=== PATIENT | male | born 1980 | race African-American/Black ===

== ENCOUNTER 2019-09-05 02:19 | Emergency (ER) | payer MEDICAID ==
[~2019-09-05] VITALS: Ht 185.4 cm; Wt 88.5 kg
[2019-09-05 02:40] VITALS: BP 132/77
--- NOTE | 2019-09-05 02:40 | NUR ---
ED Nurse Note: Pt ambulated into ED [place] spider bite on L buttock x 6 days which has worsened. pt reports drainage of pus, blood, and increased warmth to area with redness. 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 pt is reporting fevers and chills x 2 days. VSS, pt restless and irritable, aao x4, steady gait. Awaiting ERMD at bedside
--- NOTE | 2019-09-05 02:45 | NUR ---
ED Nurse Note: ERMD at bedside
--- NOTE | 2019-09-05 02:50 | NUR ---
ED Nurse Note: IV line started, blood drawn and sent to lab.
[2019-09-05] MEDS ORDERED: Vancomycin 1.5 GM in NS 275 ML IVPB ONE (03:00)
[2019-09-05] MEDS ORDERED: Morphine Sulfate 4mg/ml Inj (IV USE ONLY) IVP ONE (03:00)
[2019-09-05] MEDS ORDERED: Lidocaine 1% 10mg/ml/EPI 0.01mg/ml 30ml INJ ONE (03:00)
[2019-09-05] MEDS ORDERED: Piperacillin/Tazobactam 3.375 GM in NS 110 ML IVPB ONE (03:00)
--- NOTE | 2019-09-05 03:00 | NUR ---
ED Nurse Note: ERMD at bedside informing pt of procedure; consent signed and approved by pt.
--- NOTE | 2019-09-05 03:19 | Emergency Room Report ---
History of Present Illness General Chief Complaint: Animal Bite Source: Patient Present Illness HPI Patient is a 39-year-old male presents after increased left-sided buttock pain. He reports having gradual onset of worsening pain as well as subjective fever. He states that he had symptoms since approximately 6 days ago. This had gradually worsened over time and had started spontaneously draining yesterday. He denies any vomiting. He reports having one prior abscess many years ago. Denies any prior history of diabetes or immunocompromise. Allergies: Coded Allergies: No Known Allergies (Unverified , 09/05/19) Patient History Past Medical History: see triage record Reviewed Nursing Documentation: PMH: Agreed; PSxH: Agreed Nursing Documentation-PMH Past Medical History: No Stated History Review of Systems All Other Systems: negative except mentioned in HPI Physical Exam Vital Signs Date Time Temp Pulse Resp B/P (MAP) Pulse Ox O2 Delivery O2 Flow Rate FiO2 09/05/19 02:27 98.2 93 18 132/77 (95) 96 Room Air Sp02 EP Interpretation: reviewed, normal General Appearance: normal inspection, well appearing, no apparent distress, alert, GCS 15 Head: atraumatic ENT: normal ENT inspection, hearing grossly normal, normal voice Neck: normal inspection, full range of motion, supple, no bony tend Respiratory: normal inspection, lungs clear, normal breath sounds, no respiratory distress, no retraction, no wheezing Cardiovascular #1: regular rate, rhythm, no edema Gastrointestinal: normal inspection, normal bowel sounds, non tender, soft, no guarding, no hernia Genitourinary: no CVA tenderness Musculoskeletal: normal inspection, back normal, normal range of motion Neurologic: alert, responsive, speech normal, normal inspection Psychiatric: normal inspection, judgement/insight normal, mood/affect normal Skin: other - Present for skin rash. Differenti Procedures Incision and Drainage Incision and Drainage : Consent: Emergent Blade Size: 11 I & D Procedure: betadine prep, sterile drapes applied Wound Location: other - buttock Wound Length (cm): 3 Wound Explored: clean Irrigated w/ Saline (ccs): 10 Anesthesia: Lidocaine w/ Epi Volume Anesthetic (ccs): 8 Patient Tolerated: Well Complications: None Progress Drain moderate amount of purulent material. Area was packed with gauze. Patient tolerated procedure well. Medical Decision Making Diagnostic Impression: Primary Impression: Abscess of skin ER Course Patient presented for left buttock pain and swelling. Differential diagnosis include was not limited to abscess, furuncle, among others. Because of complexity of patient's case laboratory tests and imaging studies were ordered. Patient was noted to have some spontaneous drainage from the area. Appears to be significant abscess to the left buttock. Labs Test 09/05/19 02:53 White Blood Count 17.6 K/UL (4.8-10.8) Red Blood Count 4.53 M/UL (4.70-6.10) Hemoglobin 12.3 G/DL (14.2-18.0) Hematocrit 36.5 % (42.0-52.0) Mean Corpuscular Volume 81 FL (80-99) Mean Corpuscular Hemoglobin 27.1 PG (27.0-31.0) Mean Corpuscular Hemoglobin Concent 33.7 G/DL (32.0-36.0) Red Cell Distribution Width 11.3 % (11.6-14.8) Platelet Count 223 K/UL (150-450) Mean Platelet Volume 6.9 FL (6.5-10.1) Neutrophils (%) (Auto) 69.3 % (45.0-75.0) Lymphocytes (%) (Auto) 16.5 % (20.0-45.0) Monocytes (%) (Auto) 11.7 % (1.0-10.0) Eosinophils (%) (Auto) 1.6 % (0.0-3.0) Basophils (%) (Auto) 0.9 % (0.0-2.0) Sodium Level 139 MMOL/L (136-145) Potassium Level 3.5 MMOL/L (3.5-5.1) Chloride Level 100 MMOL/L (98-107) Carbon Dioxide Level 29 MMOL/L (21-32) Anion Gap 11 mmol/L (5-15) Blood Urea Nitrogen 11 mg/dL (7-18) Creatinine 1.4 MG/DL (0.55-1.30) Estimat Glomerular Filtration Rate > 60 mL/min (>60) Glucose Level 104 MG/DL (74-106) Lactic Acid Level 0.50 mmol/L (0.4-2.0) Calcium Level 9.0 MG/DL (8.5-10.1) Total Bilirubin 0.3 MG/DL (0.2-1.0) Aspartate Amino Transf (AST/SGOT) 19 U/L (15-37) Alanine Aminotransferase (ALT/SGPT) 38 U/L (12-78) Alkaline Phosphatase 78 U/L (46-116) Total Creatine Kinase 87 U/L (26-308) Creatine Kinase MB 0.7 NG/ML (0.0-3.6) Creatine Kinase MB Relative Index 0.8 Troponin I 0.000 ng/mL (0.000-0.056) Total Protein 7.3 G/DL (6.4-8.2) Albumin 3.3 G/DL (3.4-5.0) Globulin 4.0 g/dL Albumin/Globulin Ratio 0.8 (1.0-2.7) Last Vital Signs Date Time Temp Pulse Resp B/P (MAP) Pulse Ox O2 Delivery O2 Flow Rate FiO2 09/05/19 02:27 98.2 93 18 132/77 (95) 96 Room Air Status: improved Disposition: HOME, SELF-CARE Condition: Stable Scripts Oxycodone/Acetaminophen 5-325* (PERCOCET 5-325 MG TABLET*) 1 Each Tablet 1 TAB ORAL Q6H PRN for For Pain, #12 TAB Prov: Jaxon Nicole MD 09/05/19 Trimethoprim/Sulfamethoxazole 160/800* (BACTRIM DS TABLET*) 1 Each Tablet 1 TAB ORAL Q12H, #14 TAB 0 Refills Prov: Jaxon Nicole MD 09/05/19 Cephalexin* (KEFLEX*) 500 Mg Capsule 500 MG ORAL EVERY 6 HOURS, #28 CAP Prov: Jaoxn Nicole MD 09/05/19 Referrals: NON PHYSICIAN (PCP) Jaxon Nicole MD Sep 05, 2019 03:19
--- NOTE | 2019-09-05 03:30 | NUR ---
ED Nurse Note: All lab work sent to lab; all medications administered, pt tolerated well no s/s of distress noted.
[2019-09-05 03:40] LABS: BASOPHILS % (AUTO) 0.9 % (0.0-2.0); EOSINOPHILS % (AUTO) 1.6 % (0.0-3.0); HEMATOCRIT 36.5 % (42.0-52.0); HEMOGLOBIN 12.3 G/DL (14.2-18.0); LYMPHOCYTES % (AUTO) 16.5 % (20.0-45.0); MEAN CORPUSCULAR VOLUME 81 FL (80-99); MONOCYTES % (AUTO) 11.7 % (1.0-10.0); NEUTROPHILS % (AUTO) 69.3 % (45.0-75.0); PLATELET COUNT 223 K/UL (150-450); RED BLOOD COUNT 4.53 M/UL (4.70-6.10); RED CELL DISTRIBUTION WIDTH 11.3 % (11.6-14.8); WHITE BLOOD COUNT 17.6 K/UL (4.8-10.8)
--- NOTE | 2019-09-05 03:45 | NUR ---
ED Nurse Note: ERMD performed procedure of incision on abcess; pt tolerated well.
[2019-09-05 03:49] LABS: ANION GAP 11 mmol/L (5-15); BLOOD UREA NITROGEN 11 mg/dL (7-18); CARBON DIOXIDE 29 MMOL/L (21-32); CHLORIDE 100 MMOL/L (98-107); CREATININE 1.4 MG/DL (0.55-1.30); POTASSIUM 3.5 MMOL/L (3.5-5.1); SODIUM 139 MMOL/L (136-145)
[2019-09-05 04:02] LABS: ALANINE AMINOTRANSFERASE 38 U/L (12-78); ALBUMIN 3.3 G/DL (3.4-5.0); ALBUMIN/GLOBULIN RATIO 0.8 (1.0-2.7); ALKALINE PHOSPHATASE 78 U/L (46-116); ASPARTATE AMINO TRANSFERASE 19 U/L (15-37); BILIRUBIN,TOTAL 0.3 MG/DL (0.2-1.0); CKMB 0.7 NG/ML (0.0-3.6); CREATINE KINASE 87 U/L (26-308)
[2019-09-05 04:45] VITALS: BP 145/82
[2019-09-05] MEDS ORDERED: CEPHALEXIN500 MG ORAL (04:53)
[2019-09-05] MEDS ORDERED: BACTRIM DS TAB1 EAC1 ORAL (04:53)
[2019-09-05] MEDS ORDERED: PERCOCET 5-3251 EACH ORAL (04:53)
--- NOTE | 2019-09-05 05:00 | NUR ---
ED Nurse Note: All medications administered, pt tolerated well no ss of distress noted. no adverse reactions noted. Pt resting in bed with girlfriend at bedside
[2019-09-05 06:35] VITALS: BP 122/75
--- NOTE | 2019-09-05 07:10 | NUR ---
ED Nurse Note: Pt aware discharhe paperwork ready adn prescription for Percocet. Pt says pain came up to an 8/10 and can't wait to fill prescription. Dr Mcgregor notified.
--- NOTE | 2019-09-05 07:29 | NUR ---
ER DISCHARGE NOTE: Patient is cleared to be discharged per ERMD, pt is aox4, on room air, with stable vital signs. pt was given dc and prescription instructions, pt was able to verbalize understanding, pt id band and iv site removed without complications. pt is able to ambulate with steady gait. pt took all belongings. Pt provided education on wound care and medications.
[2019-09-05 07:30] VITALS: BP 125/78
[2019-09-05] MEDS ORDERED: HYDROcodone/Acetamin 7.5/325 tab ORAL ONE (07:30)
== END 2019-09-05 07:30 | disposition home or self-care (01) ==
LOC: EMR 03:03
DX: L02.31 Cutaneous abscess of buttock (principal)
CPT/HCPCS: 10060; 36415; 80053; 82550; 82553; 83605; 84484; 85025; 87040; 96361; 96365; 96367; 96375; J2270; J2543; J3370; J7030; J7050; Z7502; 99284

== ENCOUNTER 2019-09-07 23:24 | Emergency (ER) | payer MEDICAID ==
[~2019-09-07] VITALS: Ht 185.4 cm; Wt 87.5 kg
[~2019-09-07 23:24] MED LIST: BACTRIM DS TAB1 EAC1 ORAL; CEPHALEXIN500 MG ORAL; PERCOCET 5-3251 EACH ORAL
[2019-09-08 00:10] VITALS: BP 125/83
--- NOTE | 2019-09-08 00:10 | NUR ---
ED Nurse Note: Pt walked into ED for c/o wound recheck s/p recent I&D at [facility]. Pt had spider bite on L buttcheek that was drained. Pt has no other complaints at this time. Pt is aaox4, ambulatory with steady gait. No acute distress noted.
[2019-09-08] MEDS ORDERED: MUPIROCIN22 GM TOPIC (01:03)
--- NOTE | 2019-09-08 01:04 | Emergency Room Report ---
History of Present Illness General Chief Complaint: Wound Recheck/Suture Removal Source: Patient Present Illness HPI Is a 39-year-old male who is here for an I&D of the left buttock abscess. He is here for wound check. He said he continues to drain. Some tenderness to that area. Worse when he sit on it. Feeling better however. No fever chills. No nausea no vomiting. Pain improved. Allergies: Coded Allergies: No Known Allergies (Unverified , 09/05/19) Patient History Past Medical History: see triage record, old chart reviewed Past Surgical History: none Pertinent Family History: none Social History: Denies: smoking Immunizations: other Reviewed Nursing Documentation: PMH: Agreed; PSxH: Agreed Nursing Documentation-PMH Past Medical History: No Stated History Review of Systems Eye: Denies: eye pain, blurred vision ENT: Denies: ear pain, nose congestion, throat swelling Respiratory: Denies: cough, shortness of breath Cardiovascular: Denies: chest pain, palpitations Gastrointestinal: Denies: abdominal pain, diarrhea, nausea, vomiting Musculoskeletal: Denies: back pain, joint pain Skin: Denies: rash Neurological: Denies: headache, numbness Endocrine: Denies: increased thirst, increased urine Hematologic/Lymphatic: Denies: easy bruising All Other Systems: negative except mentioned in HPI Physical Exam Vital Signs Date Time Temp Pulse Resp B/P (MAP) Pulse Ox O2 Delivery O2 Flow Rate FiO2 09/07/19 23:41 97.7 84 16 125/83 (97) 97 Room Air Vitals normal Sp02 EP Interpretation: reviewed, normal General Appearance: well appearing, no apparent distress, alert Head: normocephalic, atraumatic Eyes: bilateral eye PERRL, bilateral eye EOMI ENT: hearing grossly normal, normal pharynx Neck: full range of motion, supple, no meningismus Respiratory: chest non-tender, lungs clear, normal breath sounds Cardiovascular #1: regular rate, rhythm, no murmur Gastrointestinal: normal bowel sounds, non tender, no mass, no organomegaly, no bruit, non-distended Rectal: other - Buttock with indurated area. Minimal drainage. Packing removed. Musculoskeletal: back normal, normal range of motion, gait/station normal Psychiatric: mood/affect normal Medical Decision Making Diagnostic Impression: Primary Impression: Encounter for wound re-check Additional Impression: Abscess of skin Qualified Codes: L02.31 - Cutaneous abscess of buttock ER Course Here for wound check for an abscess of his buttock. I see no need for repeat I& D. Will discharge home but add Bactroban. Last Vital Signs Date Time Temp Pulse Resp B/P (MAP) Pulse Ox O2 Delivery O2 Flow Rate FiO2 09/07/19 23:41 97.7 84 16 125/83 (97) 97 Room Air Status: improved Disposition: HOME, SELF-CARE Condition: Stable Scripts Mupirocin* (MUPIROCIN*) 22 Gm Oint...g. 1 APPLIC TOPIC THREE TIMES A DAY, #22 GM Prov: Ayush Houston MD 09/08/19 Referrals: NOT CHOSEN IPA/,REFERRING (PCP) Patient Instructions: Wound Check Additional Instructions: Continue with your antibiotics. Follow-up with your doctor in 7 days. Keep wound clean. Clean first with hydrogen peroxide and then apply antibiotic ointment. Keep it covered. Return if worse. Ayush Houston MD Sep 08, 2019 01:04
[2019-09-08 01:10] VITALS: BP 125/83
--- NOTE | 2019-09-08 01:10 | NUR ---
ER DISCHARGE NOTE: Patient is cleared to be discharged per ERMD, pt is aox4, on room air, with stable vital signs. pt was given dc and prescription instructions, pt was able to verbalize understanding, pt id band removed. pt is able to ambulate with steady gait. pt took all belongings.
== END 2019-09-08 01:10 | disposition home or self-care (01) ==
LOC: EMR 23:58
DX: L02.31 Cutaneous abscess of buttock (principal)
CPT/HCPCS: 99281

== ENCOUNTER 2019-11-05 23:17 | Emergency (ER) | payer MEDICAID ==
[~2019-11-05] VITALS: Ht 185.4 cm; Wt 88.5 kg
[~2019-11-05 23:17] MED LIST changes: +MUPIROCIN22 GM TOPIC
--- NOTE | 2019-11-05 23:41 | NUR ---
ED Nurse Note: Walk-in patient with complaints of difficulty walking due to abscess x 2, at the left medial and lateral thigh x 2 days. PAtient reports pain 10/10. Patient was asked to disrobe and dress into a gown for ERMD assessment and evaluation. Will continue to monitor for impending orders.
[2019-11-05 23:42] VITALS: BP 120/77
--- NOTE | 2019-11-06 00:12 | Emergency Room Report ---
History of Present Illness General Chief Complaint: Skin Rash/Abscess Source: Patient Present Illness [facility] This is a 39-year-old male with previous skin infection. He presents with abscess to his lower extremities. Onset for last 2 to 3 days. He has 1 on his right inner thigh that drained a little bit. Also has one on his right knee that is swollen and very painful. He also has 1 on the anterior aspect of his left thigh. No fever chills. Similar symptom in the past. Pain is 9 out of 10. Worse with walking. No fever chills but no nausea no vomiting. No history of IV drug use or skin popping. Allergies: Coded Allergies: No Known Allergies (Unverified , 09/05/19) COVID-19 Screening Contact w/high risk pt: No Recent Travel to affected area: No Experienced COVID-19 symptoms?: No Patient History Past Medical History: see triage record, old chart reviewed Past Surgical History: none Pertinent Family History: none Social History: Denies: smoking Immunizations: other Reviewed Nursing Documentation: PMH: Agreed; PSxH: Agreed Nursing Documentation-PMH Past Medical History: No Stated History Review of Systems Eye: Denies: eye pain, blurred vision ENT: Denies: ear pain, nose congestion, throat swelling Respiratory: Denies: cough, shortness of breath Cardiovascular: Denies: chest pain, palpitations Gastrointestinal: Denies: abdominal pain, diarrhea, nausea, vomiting Musculoskeletal: Denies: back pain, joint pain Skin: Reports: lesions; Denies: rash Neurological: Denies: headache, numbness Endocrine: Denies: increased thirst, increased urine Hematologic/Lymphatic: Denies: easy bruising All Other Systems: negative except mentioned in HPI Physical Exam Vital Signs Date Time Temp Pulse Resp B/P (MAP) Pulse Ox O2 Delivery O2 Flow Rate FiO2 11/05/19 23:30 97.9 82 20 120/77 (91) 96 Room Air Vitals normal Sp02 EP Interpretation: reviewed, normal General Appearance: well appearing, no apparent distress, alert Head: normocephalic, atraumatic Eyes: bilateral eye PERRL, bilateral eye EOMI ENT: hearing grossly normal, normal pharynx Neck: full range of motion, supple, no meningismus Respiratory: chest non-tender, lungs clear, normal breath sounds Cardiovascular #1: regular rate, rhythm, no murmur Gastrointestinal: normal bowel sounds, non tender, no mass, no organomegaly, no bruit, non-distended Musculoskeletal: back normal, normal range of motion, gait/station normal, other - Right lower extremity: There is a erythematous indurated area of 2 cm to the right proximal inner thigh. There is a small necrotic center. There is a 3 to 4 cm area of erythema on the anterior aspect of the knee. Has fluctuant and tenderness. Full range of motion of the knee. Left thigh: On the anterior aspect of the thigh there is an indurated area of 4 cm with surrounding erythema. Psychiatric: mood/affect normal Procedures Incision and Drainage Incision and Drainage #1: Consent: Verbal Site: Left thigh Blade Size: 11 I & D Procedure: betadine prep, sterile drapes applied Wound Location: lower extremity Anesthesia: 1% Lidocaine Volume Anesthetic (ccs): 4 Patient Tolerated: Well Complications: None Incision and Drainage #2: Site: Right thigh Volume Anesthetic (ccs): 2 Incision and Drainage #3: Site: Right knee Medical Decision Making Diagnostic Impression: Primary Impression: Abscess of skin Qualified Codes: L02.419 - Cutaneous abscess of limb, unspecified ER Course Patient presents with 3 abscesses to his lower extremities. Patient is extremely anxious about having I&D done. I was able to do the I&D on his left thigh. Patient was extremely anxious and I had to take almost an hour to do at this 1 procedure. I had to stop several times. His on the phone as that we put an IV in him and give him pain medication and IV antibiotics. His abscesses superficial and not deep. I see no need for this. Patient after this 1 I&D does not want to stay want to be discharged. I did give him a dose of antibiotics here. He has no evidence of any sepsis or deep infection or necrotizing fasciitis. He has no fever. No evidence of septic joint. Last Vital Signs Date Time Temp Pulse Resp B/P (MAP) Pulse Ox O2 Delivery O2 Flow Rate FiO2 11/05/19 23:42 97.9 89 20 120/77 96 Room Air Status: improved Disposition: HOME, SELF-CARE Condition: Stable Scripts Oxycodone/Acetaminophen 5-325* (PERCOCET 5-325 MG TABLET*) 1 Each Tablet 1 TAB ORAL Q4H PRN for For Pain, #15 TAB 0 Refills Prov: Ayush Houston MD 11/06/19 Cephalexin* (KEFLEX*) 500 Mg Capsule 500 MG ORAL TID, #21 CAP Prov: Ayush Houston MD 11/06/19 Trimethoprim/Sulfamethoxazole 160/800* (BACTRIM DS TABLET*) 1 Each Tablet 1 TAB ORAL Q12H, #14 TAB 0 Refills Prov: Ayush Houston MD 11/06/19 Referrals: NON PHYSICIAN (PCP) Patient Instructions: Abscess Additional Instructions: You are leaving before incision and drainage can be done on all of the abscesses. This may increase your risk for worsening infection. This may lead to sepsis or bacteremia. Keep your wound clean. Clean with hydrogen peroxide and apply antibiotic ointment. Follow-up with your doctor in 2 to 3 days for recheck. Return if symptoms worsen. Ayush Houston MD November 06, 2019 00:12
[2019-11-06] MEDS ORDERED: Bactrim-DS 1 tab ORAL ONE (00:15)
[2019-11-06] MEDS ORDERED: Neosporin Oint Ud Pkt TOPIC ONE (00:15)
[2019-11-06] MEDS ORDERED: HYDROcodone/Acetamin 5/325 tab ORAL ONE (00:15)
[2019-11-06] MEDS ORDERED: oxyCODONE HCL/Acetaminophen 5/325mg ORAL ONE (00:15)
[2019-11-06] MEDS ORDERED: CEPHALEXIN500 MG ORAL (01:02)
[2019-11-06] MEDS ORDERED: PERCOCET 5-3251 EACH ORAL (01:02)
[2019-11-06] MEDS ORDERED: BACTRIM DS TAB1 EAC1 ORAL (01:02)
[2019-11-06] MEDS ORDERED: MUPIROCIN22 GM TOPIC (01:04)
--- NOTE | 2019-11-06 01:21 | NUR ---
ER DISCHARGE NOTE: Patient was unable to tolerate I&D x 3. Patient was able to endure I&D #1, but with incomplete drainage. Patient request discharge and was cleared for discharge by ERMD. Wound was dressed with telfa and a tegaderm along with topical antibiotic ointment. Patient verbalized understanding and a plan to go to a different hospital tomorrow to have additional areas drained. Patient is A&Ox4, ambulatory with steady gait but difficulty due to abscesses and departed with all belongings.
[2019-11-06 01:22] VITALS: BP 120/77
== END 2019-11-06 01:23 | disposition home or self-care (01) ==
LOC: EMR 23:32
DX: L02.415 Cutaneous abscess of right lower limb (principal); L02.416 Cutaneous abscess of left lower limb
CPT/HCPCS: 10060; 87070; 87181; 87205; Z7502; 99283